=== PATIENT | male | born 1975 | race Caucasian/White ===

== ENCOUNTER 2018-04-29 09:07 | Day surgery (SDC) | payer BC ==
[~2018-04-29 09:07] MED LIST: ACETAMINOPHEN 1,000 MG/100 ML BTL IV ONE; VANCOMYCIN HCL 1,000 MG in DEXTROSE 5 % IN WATER 250 ML IVPB ONE
[2018-04-29] MEDS ORDERED: LIDOCAINE 2% MDV (20MG/ML) 20ML VIAL IV ONE (09:08)
[2018-04-29] MEDS ORDERED: ONDANSETRON HCL IV 4 MG/2 ML VIAL IVP ONE (09:08)
[2018-04-29] MEDS ORDERED: MIDAZOLAM HCL 2MG/2ML VIAL IV ONE (09:08)
[2018-04-29] MEDS ORDERED: DEXAMETHASONE 4 MG/ML 1ML VIAL IVP ONE (09:08)
[2018-04-29] MEDS ORDERED: PROPOFOL 10 MG/ML VIAL IV ONE (09:08)
[2018-04-29] MEDS ORDERED: FENTANYL PF 100MCG/2ML VIAL IV ONE (09:08)
[2018-04-29] MEDS ORDERED: SEVOFLURANE 250 ML INH ONE (09:08)
[2018-04-29] MEDS ORDERED: BUPIVACAINE 0.25% W/EPI MPF 30ML VIAL IVP ONE (09:08)
--- NOTE | 2018-04-30 08:40 | Operative Note ---
DATE OF SURGERY: 04/29/2018 Surgeon: Nirav Ireland DO Referring physician: Vanita Stanley NP PREOPERATIVE DIAGNOSIS: Torn medial meniscus of the right knee (bucket handle). POSTOPERATIVE DIAGNOSIS: Torn medial meniscus of the right knee (bucket handle). OPERATION: Arthroscopic partial medial meniscectomy right knee. Anesthesia: General. PROCEDURE: This 42-year-old male was taken to the operating room and placed in the supine position on the operating room table. A general anesthetic was administered and the right lower extremity was exsanguinated and the tourniquet inflated to 300 mmHg. Arthroscopic knee champagne applied. The right knee was prepped with Hibiclens and draped in the usual sterile fashion. An anterior lateral portal was established with a 4 mm arthroscope and initial evaluation of the joint demonstrated normal appearance of the suprapatellar pouch. The patellofemoral joint appeared essentially normal. An inferior medial portal was established. We demonstrated the lateral compartment to be entirely normal. The anterior cruciate ligament also appeared to be normal. A displaced bucket handle tear of the medial meniscus was present. We did reduce the medial meniscal tear, but because of the tightness of his knee, it was extremely difficult to get to the posterior horn, therefore we detached it anteriorly without difficulty with the arthroscopic scissors and made an accessory portal just medial to the patellar tendon. We then approached this through the intercondylar notch and because his knee was so tight, it was necessary for us to use the ArthroCare wand to resect the posterior attachment of the meniscus. Once this had been accomplished, the grasper was used to remove it from the joint and the wound was copiously irrigated and suctioned and the instruments were removed. Some mild scuffing of the lateral aspect of the medial femoral condyle adjacent to the intercondylar notch did occur, causing a very mild grade 2 change. The instruments were removed and the portals closed with 4-0 nylon suture and they were also infiltrated with 0.25% Marcaine with epinephrine. Sterile dressings were applied. The patient taken to the recovery room in satisfactory condition. GROSS PATHOLOGY: This patient demonstrated a displaced bucket handle tear of the medial meniscus which was removed in the manner described above. [facility]
== END 2018-04-29 14:15 | disposition home or self-care (01) ==
LOC: SUR 09:07
PROVIDERS: ATTEND Orthopaedic Surgery
DX: S83.211A Bucket-handle tear of medial meniscus, current injury, right knee, initial encounter (principal); F17.210 Nicotine dependence, cigarettes, uncomplicated
CPT/HCPCS: 29881; 01400; J2405; J3370; J3010; J7060